=== PATIENT | male | born 1945 | race Caucasian/White ===

== ENCOUNTER 2023-10-27 16:31 | Outpatient (CLI) | payer MEDICARE | END 2023-10-27 16:32 | disposition home or self-care (01) | LOC: CSHWCC 16:31 | PROVIDERS: ATTEND Family Medicine | DX: L89.153 Pressure ulcer of sacral region, stage 3 (principal); E11.621 Type 2 diabetes mellitus with foot ulcer; L97.412 Non-pressure chronic ulcer of right heel and midfoot with fat layer exposed; L97.312 Non-pressure chronic ulcer of right ankle with fat layer exposed; I87.311 Chronic venous hypertension (idiopathic) with ulcer of right lower extremity; I73.9 Peripheral vascular disease, unspecified | CPT/HCPCS: 97597 ==

== ENCOUNTER 2023-11-10 13:43 | Outpatient (CLI) | payer MEDICARE, OTHER | END 2023-11-10 13:44 | disposition home or self-care (01) | LOC: CSHWCC 13:43 | PROVIDERS: ATTEND Family Medicine | DX: L89.153 Pressure ulcer of sacral region, stage 3 (principal); I87.311 Chronic venous hypertension (idiopathic) with ulcer of right lower extremity; E11.621 Type 2 diabetes mellitus with foot ulcer; L97.412 Non-pressure chronic ulcer of right heel and midfoot with fat layer exposed; L97.312 Non-pressure chronic ulcer of right ankle with fat layer exposed; E11.59 Type 2 diabetes mellitus with other circulatory complications | CPT/HCPCS: 97597 ==

== ENCOUNTER 2023-12-05 15:33 | Outpatient (CLI) | payer OTHER | END 2023-12-05 15:34 | disposition home or self-care (01) | LOC: CSHWCC 15:33 | PROVIDERS: ATTEND Nurse Practitioner Family | DX: L89.153 Pressure ulcer of sacral region, stage 3 (principal); L89.512 Pressure ulcer of right ankle, stage 2; I87.311 Chronic venous hypertension (idiopathic) with ulcer of right lower extremity; E11.621 Type 2 diabetes mellitus with foot ulcer; L97.412 Non-pressure chronic ulcer of right heel and midfoot with fat layer exposed; E11.59 Type 2 diabetes mellitus with other circulatory complications | CPT/HCPCS: 11042 ==

== ENCOUNTER 2023-12-11 15:41 | Outpatient (CLI) | payer OTHER | END 2023-12-11 15:42 | disposition home or self-care (01) | LOC: CSHWCC 15:41 | PROVIDERS: ATTEND Preventive Medicine Undersea and Hyperbaric Medicine | DX: L89.153 Pressure ulcer of sacral region, stage 3 (principal); L89.512 Pressure ulcer of right ankle, stage 2; I87.311 Chronic venous hypertension (idiopathic) with ulcer of right lower extremity; E11.621 Type 2 diabetes mellitus with foot ulcer; L97.412 Non-pressure chronic ulcer of right heel and midfoot with fat layer exposed; E11.51 Type 2 diabetes mellitus with diabetic peripheral angiopathy without gangrene | CPT/HCPCS: 99213; G0463 ==

== ENCOUNTER 2023-12-18 13:03 | Outpatient (CLI) | payer OTHER | END 2023-12-18 13:04 | disposition home or self-care (01) | LOC: CSHWCC 13:03 | PROVIDERS: ATTEND Nurse Practitioner Family | DX: L89.153 Pressure ulcer of sacral region, stage 3 (principal); L89.512 Pressure ulcer of right ankle, stage 2; I87.311 Chronic venous hypertension (idiopathic) with ulcer of right lower extremity; E11.621 Type 2 diabetes mellitus with foot ulcer; L97.412 Non-pressure chronic ulcer of right heel and midfoot with fat layer exposed; E11.51 Type 2 diabetes mellitus with diabetic peripheral angiopathy without gangrene | CPT/HCPCS: 11042 ==

== ENCOUNTER 2024-01-01 14:03 | Outpatient (CLI) | payer OTHER | END 2024-01-01 14:04 | disposition home or self-care (01) | LOC: CSHWCC 14:03 | PROVIDERS: ATTEND Nurse Practitioner Family | DX: L89.153 Pressure ulcer of sacral region, stage 3 (principal); L89.512 Pressure ulcer of right ankle, stage 2; I87.311 Chronic venous hypertension (idiopathic) with ulcer of right lower extremity; E11.621 Type 2 diabetes mellitus with foot ulcer; L97.412 Non-pressure chronic ulcer of right heel and midfoot with fat layer exposed; E11.51 Type 2 diabetes mellitus with diabetic peripheral angiopathy without gangrene | CPT/HCPCS: 11042; 97597 ==

== ENCOUNTER 2024-01-08 13:10 | Outpatient (CLI) | payer OTHER | END 2024-01-08 13:11 | disposition home or self-care (01) | LOC: CSHWCC 13:10 | PROVIDERS: ATTEND Nurse Practitioner Family | DX: L89.153 Pressure ulcer of sacral region, stage 3 (principal); L89.512 Pressure ulcer of right ankle, stage 2; I87.311 Chronic venous hypertension (idiopathic) with ulcer of right lower extremity; E11.621 Type 2 diabetes mellitus with foot ulcer; L97.412 Non-pressure chronic ulcer of right heel and midfoot with fat layer exposed; E11.59 Type 2 diabetes mellitus with other circulatory complications | CPT/HCPCS: 11042 ==